=== PATIENT | male | born 1960 | race African-American/Black ===

== ENCOUNTER 2017-09-11 01:23 | Emergency (ER) | payer BC ==
[~2017-09-11] VITALS: Ht 182.9 cm; Wt 99.8 kg
[2017-09-11 01:28] VITALS: Ht 182.9 cm; Wt 99.8 kg
[2017-09-11 03:01] VITALS: BP 148/73
== END 2017-09-11 03:00 | disposition home or self-care (01) ==
LOC: ED 01:23
DX: M62.838 Other muscle spasm (principal)
CPT/HCPCS: J1885; J2270